=== PATIENT | female | born 1995 | race Caucasian/White ===

== ENCOUNTER 2018-11-12 09:24 | Emergency (ER) | payer SELFPAY ==
[~2018-11-12] VITALS: Ht 160 cm; Wt 52.0 kg
--- NOTE | 2018-11-12 10:32 | NUR ---
PT TO ED FOR INCREASING LOWER LEFT ABD PAIN. PAIN IS INTERMITTENT, COMMON AFTER SEX, BUT WORSE TODAY, AND HAD BEEN GOING ON FOR YEARS. CONNECTED TO MONITORS. VSS. LAB AT BEDSIDE TO DRAW. AWAITING RESULTS.
[2018-11-12 10:48] LABS: BASOPHILS # (AUTO) 0.01 x10^3/uL (0-0.1); BASOPHILS % (AUTO) 0 % (0-1); EOSINOPHILS # (AUTO) 0.11 x10^3/uL (0-0.4); EOSINOPHILS % (AUTO) 1 % (1-7); LYMPHOCYTES # (AUTO) 1.54 x10^3/uL (1-3.4); LYMPHOCYTES % (AUTO) 10 % (22-44); MD NO; MEAN CORPUSCULAR HEMOGLOBIN 33.4 pg (27.0-34.8); MEAN CORPUSCULAR HGB CONC 34.2 g/dL (32.4-35.8); MEAN CORPUSCULAR VOLUME 97.7 fL (80-100); MEAN PLATELET VOLUME 9.1 fL (7.4-10.4); MONOCYTES % (AUTO) 3 % (2-9); NEUTROPHILS # (AUTO) 13.25 x10^3/uL (1.8-6.8); NEUTROPHILS % (AUTO) 87 % (42-75); PLATELET COUNT 271 x10^3/uL (130-400); RED BLOOD COUNT 4.53 x10^6/uL (3.82-5.3); RED CELL DISTRIBUTION WIDTH 12.5 % (9.6-15.2)
--- NOTE | 2018-11-12 10:55 | NUR ---
pt to us at this time.
[2018-11-12 10:59] LABS: ALANINE AMINOTRANSFERASE 21 U/L (12-78); ALBUMIN 4.3 g/dL (3.4-5.0); ANION GAP 6 mmol/L (5-15); CALCIUM 9.4 mg/dL (8.5-10.1); CHLORIDE 107 mmol/L (98-107)
[2018-11-12 11:03] LABS: ALKALINE PHOSPHATASE 55 U/L (45-117); BILIRUBIN,TOTAL 0.3 mg/dL (0.2-1.0); TOTAL PROTEIN 8.4 g/dL (6.4-8.2)
[2018-11-12 11:08] LABS: MICROSCOPIC AUTO
[2018-11-12 11:15] LABS: CULTURE INDICATED? NO
--- NOTE | 2018-11-12 11:22 | NUR ---
all results back at this time. chart up for recheck.
--- NOTE | 2018-11-12 12:52 | NUR ---
PT IN CT AT THIS TIME.
--- NOTE | 2018-11-12 13:05 | NUR ---
pt back from ct.
--- NOTE | 2018-11-12 13:34 | NUR ---
all resutls [facility] at this time. chart up for recheck.
[2018-11-12 13:57] VITALS: BP 113/84
--- NOTE | 2018-11-12 13:58 | NUR ---
PT RESTING IN ROOM WITH FRIEND AT BEDSIDE. NO NEEDS EXPRESSED. VSS. CALL LIGHT WITHIN REACH. CHART UP FOR RECHECK.
== END 2018-11-12 14:22 | disposition home or self-care (01) ==
LOC: ED 14:14
DX: R10.30 Lower abdominal pain, unspecified (principal)
CPT/HCPCS: 36415; 74177; 76830; 80053; 81001; 84703; 85025; 99284

== ENCOUNTER 2020-09-20 09:22 | Emergency (ER) | payer MEDICAID, OTHER ==
[~2020-09-20] VITALS: Ht 160 cm; Wt 56.6 kg
--- NOTE | 2020-09-20 09:51 | NUR ---
"I'VE BEEN HAVING STOMACH ISSUES FOR THE LAST FEW YEARS... MAYBE IBS WITH ENDOMETRIOSIS. THIS MORNING I WAS VOMITING BLOOD." PT REPORTS ABDOMINAL PAIN INCREASING "OVER LAST FEW MONTHS" COLONOSCOPY AND UPPER ENDOSCOPY SUNDAY AT [facility]. APPEARS WELL, NO VOMITING AT THIS TIME VSS ERP AT BEDSIDE
[2020-09-20] MEDS ORDERED: ONDANSETRON 2MG/ML, 2ML IVPush ONE (10:00)
[2020-09-20] MEDS ORDERED: SODIUM CHLORIDE FLUSH 10ML SYR IVF ONE (10:00)
[2020-09-20] MEDS ORDERED: SODIUM CHLORIDE 0.9% 1,000ML IVBOLUS ONE (10:00)
[2020-09-20] MEDS ORDERED: FAMOTIDINE 20 MG/2 ML IV ONE (10:00)
[2020-09-20] MEDS ORDERED: MAALOX/HYOSCYAMINE/LIDOCAINE 45 ML BTL PO ONE (10:00)
[2020-09-20] MEDS ORDERED: ONDANSETRON 2MG/ML, 2ML ONE (10:06)
[2020-09-20] MEDS ORDERED: ZIPRASIDONE 20 MG INJ IM ONE (10:06)
[2020-09-20] MEDS ORDERED: FAMOTIDINE 20 MG/2 ML ONE (10:06)
[2020-09-20] MEDS ORDERED: MAALOX/HYOSCYAMINE/LIDOCAINE 45 ML BTL ONE (10:06)
[2020-09-20] MEDS: ZIPRASIDONE 20 MG INJ IM ONE ×2 (10:25→11:51)
--- NOTE | 2020-09-20 10:26 | NUR ---
PIV PLACED-MEDICATED PER EMAR (PATIENT REFUSED GEODON)
[2020-09-20 10:29] LABS: BASOPHILS % (AUTO) 0 % (0-1); EOSINOPHILS % (AUTO) 6 % (1-7); LYMPHOCYTES % (AUTO) 26 % (22-44); MEAN CORPUSCULAR HGB CONC 34.2 g/dL (32.4-35.8); MONOCYTES % (AUTO) 5 % (2-9); NEUTROPHILS % (AUTO) 64 % (42-75); PLATELET COUNT 200 x10^3/uL (130-400); RED BLOOD COUNT 4.76 x10^6/uL (3.82-5.3); RED CELL DISTRIBUTION WIDTH 12.3 % (9.6-15.2)
[2020-09-20 10:32] LABS: ALANINE AMINOTRANSFERASE 16 U/L (12-78); ALBUMIN 4.3 g/dL (3.4-5.0); ANION GAP 9 mmol/L (5-15); CALCIUM 9.4 mg/dL (8.5-10.1); CHLORIDE 106 mmol/L (98-107); CREATININE 0.88 mg/dL (0.55-1.02); MD NO
[2020-09-20 10:42] LABS: ALKALINE PHOSPHATASE 41 U/L (45-117); BILIRUBIN,TOTAL 0.5 mg/dL (0.2-1.0); TOTAL PROTEIN 9.2 g/dL (6.4-8.2)
--- NOTE | 2020-09-20 11:05 | NUR ---
NAUSEA IMPROVED TO 0/10 ULTRASOUND AT BEDSIDE
--- NOTE | 2020-09-20 11:52 | NUR ---
melody sent Nausea worsening-to admin virgil
[2020-09-20 12:01] LABS: MICROSCOPIC INDICATED
[2020-09-20 12:36] VITALS: BP 125/79
--- NOTE | 2020-09-20 12:55 | NUR ---
nausea improved to 2/10 discharged in company of spouse erp to bedside to explain poc
== END 2020-09-20 12:57 | disposition home or self-care (01) ==
LOC: ED 10:21
DX: G89.29 Other chronic pain (principal); R10.13 Epigastric pain; R11.2 Nausea with vomiting, unspecified; R94.31 Abnormal electrocardiogram [ECG] [EKG]
CPT/HCPCS: 36415; 74021; 76700; 80053; 81001; 83690; 84703; 85025; 87086; 93005; 96361; 96372; 96374; 96375; 99285; J2405; J3486; J7030